=== PATIENT | male | born 1970 | race Caucasian/White ===

== ENCOUNTER 2017-11-25 19:58 | Emergency (ER) | payer SELFPAY ==
[2017-11-25] MEDS ORDERED: NORMAL SALINE 1000 ML 1,000 ML IV ONE ×2 (20:32→23:00)
--- NOTE | 2017-11-25 20:35 | ER Document Report ---
ED Medical Screen (RME) - General Chief Complaint: Weakness Stated Complaint: ALL OVER PAIN Time Seen by Provider: 11/25/17 20:28 Notes: 47-year-old male comes emergency department for weakness and dizziness, significant other at bedside states that patient nearly passed out and had to be caught, patient states he is very weak. He states for the past 2 months he has been unable to swallow or eat normally, he is now hoarse, and he is shedding weight. He smokes, denies any daily medications, denies any medical history otherwise. TRAVEL OUTSIDE OF THE [place] IN LAST 30 DAYS: No - Related Data Allergies/Adverse Reactions: No Known Allergies Allergy (Unverified 11/25/17 20:02) Physical Exam - HEENT Head: Normocephalic, Atraumatic Mucous membranes: Dry Pharynx: No: Erythema, Exudate, Uvular edema, Potential airway comprom. Neck: Other - Questionable firmness and swelling to the right side of the anterior neck, no tenderness noted Course - Re-evaluation Re-evalutation: Patient tachycardic, reportedly he almost passed out just recently, very dry mucous membranes, unable to eat/drink normally, concern for possible throat cancer based on his reported symptoms and exam. Maintaining airway at this time. Workup pending. I have greeted and performed a rapid initial assessment of this patient. A comprehensive ED assessment and evaluation of the patient, analysis of test results and completion of the medical decision making process will be conducted by additional ED providers. 11/25/17 20:35
--- NOTE | 2017-11-25 20:56 | RADIOLOGY REPORT (SQ) ---
EXAM DESCRIPTION: CHEST SINGLE VIEW COMPLETED DATE/TIME: 11/25/2017 8:48 pm REASON FOR STUDY: weakness, dizziness COMPARISON: None. EXAM PARAMETERS: NUMBER OF VIEWS: One view. TECHNIQUE: Single frontal radiographic view of the chest acquired. RADIATION DOSE: NA LIMITATIONS: None. FINDINGS: LUNGS AND PLEURA: Marked opacification in the left hemithorax, particularly in the left up per lobe. MEDIASTINUM AND HILAR STRUCTURES: No masses. Contour normal. HEART AND VASCULAR STRUCTURES: Heart normal in size. Normal vasculature. BONES: No acute findings. HARDWARE: None in the chest. OTHER: No other significant finding. IMPRESSION: There is a suggestion significant airspace disease on the left. This could represent at electasis or consolidation. TECHNICAL DOCUMENTATION: JOB ID: [id number] [employer]- All Rights Reserved Reading location - IP/workstation name: [email or web address]
[2017-11-25] MEDS ORDERED: METHYLPREDNISOLONE INJ 125 MG/2 ML SDV IV ONE (21:33)
[2017-11-25] MEDS ORDERED: IPRATROPIUM/ALBUTEROL 0.5-2.5 MG/3 ML AMPUL NEB ONE ×2 (21:33→21:34)
--- NOTE | 2017-11-25 21:34 | ER Document Report ---
ED General - General Information source: Patient TRAVEL OUTSIDE OF THE [place] IN LAST 30 DAYS: No <DELPHINE HORN - Last Filed: 11/25/17 23:54> <MARGO RUIZ - Last Filed: 11/27/17 04:10> - General Chief Complaint: Weakness Stated Complaint: ALL OVER PAIN Time Seen by Provider: 11/25/17 20:28 Notes: 47 y.o female presents to the ED with trouble breathing. Pt is not able to speak very well but relative at bedside reports that he has a mass in his throat that is causing him to have trouble with breathing and drinking. She reports that he has had this mass for the past 3 months and it is not being treated. Pt also sounds to have a productive cough hindering him from breathing. He states that he would like resuscitation if needed. (DELPHINE HORN) - Related Data Allergies/Adverse Reactions: No Known Allergies Allergy (Unverified 11/25/17 20:02) Past Medical History - General Information source: Patient - Social History Smoking Status: Current Every Day Smoker Frequency of alcohol use: None Family History: Reviewed & Not Pertinent Patient has suicidal ideation: No Patient has homicidal ideation: No Renal/ Medical History: Denies: Hx Peritoneal Dialysis <DELPHINE HORN - Last Filed: 11/25/17 23:54> Review of Systems - Review of Systems Constitutional: See HPI, Other - untreated mass to neck EENT: No symptoms reported Cardiovascular: No symptoms reported Respiratory: See HPI, Other - trouble breathing Gastrointestinal: No symptoms reported Genitourinary: No symptoms reported Male Genitourinary: No symptoms reported Musculoskeletal: No symptoms reported Skin: No symptoms reported Hematologic/Lymphatic: No symptoms reported Neurological/Psychological: No symptoms reported -: Yes All other systems reviewed and negative <DELPHINE HORN - Last Filed: 11/25/17 23:54> Physical Exam <DELPHINE HORN - Last Filed: 11/25/17 23:54> <MARGO RUIZ - Last Filed: 11/27/17 04:10> - Vital signs Vitals: Resp Pulse Ox 33 H 96 11/25/17 21:26 11/25/17 21:26 - Notes Notes: Physical Exam: General: Alert. Moderate distress. HEENT: Normocephalic. Atraumatic. PERRL. Extraocular movements intact. Oropharynx clear. Dry mucus membranes. Neck: Supple. Non-tender. Respiratory: Moderate distress. Tachypnic. Hypoxic. Has decreased breath sounds on the LT. Wheezing to the bilateral apices. Cardiovascular: Tachycardic rate and regular rhythm. Abdominal: Normal Inspection. Non-tender. No distension. Normal Bowel Sounds. Back: Non-tender. No deformity or step off. Extremities: Moves all four extremities. Upper extremities: Normal inspection. Normal ROM. Lower extremities: Normal inspection. No edema. Normal ROM. Neurological: Normal cognition. AAOx3. Normal speech. Psychological: Normal affect. Normal Mood. Skin: Warm. Dry. Normal color. (DELPHINE HORN) Course - Laboratory Result Diagrams: 11/25/17 21:38 11/25/17 21:38 <DELPHINE HORN - Last Filed: 11/25/17 23:54> - Laboratory Result Diagrams: 11/25/17 21:38 11/26/17 00:59 - Diagnostic Test Radiology reviewed: Image reviewed, Reports reviewed <MARGO RUIZ - Last Filed: 11/27/17 04:10> - Re-evaluation Re-evalutation: 11/25/17 23:29 Pt is starting to have respiratory failure. Discussed intubation and poor prognosis. Pt understands and does not have anyone that he wants to call at this moment. (DELPHINE HORN) Patient is a 47-year-old male who came in complaining of difficulty breathing. The patient has not seen a physician since he was a child. Immediate family members are apparently all including a brother last year related to diabetes. Patient's chest x-ray showing infection of left side of chest. Patient is decreased breath sounds, is tachypneic and tachycardic. He is placed on BiPAP. Discussed resuscitation including intubation and if the patient would like CPR. Patient states that he does not want to diet would like to be a full code after having a lengthy discussion regarding this. Patient CT showing a large mass in his left chest into his mediastinum and as well as liver metastasis. Blood work is showing a glucose of 400 with a CO2 of less than 5. Patient also has acute renal insufficiency and elevated liver enzymes. Patient had a difficult time with access initially likely due to shock. 2 peripheral IVs were placed and fluids were started as well as antibiotics but those eventually were inadequate and the lines blew. Patient began to have increased difficulty breathing and stated that he was getting very tired. Oxygen saturation was dropping despite being on BiPAP and patient GCS was waxing and waning. Patient did name his is healthcare proxy while he was still awake alert and oriented to time person place and events. Patient was prepared for intubation with glide scope. Please see procedure note. EJ was placed in the right neck prior to intubation. Central line then placed in left femoral for better access. Despite fluids, antibiotics and insulin drip, patient CO2 is only slightly improved. Glucose is finally trending down. Patient was discussed with the hospitalist service here and due to lack of ICU beds and critical care physician, recommend transfer to [place]. Discussed with Dr. Oliver in the ICU [place] who will accept the patient for transfer due to multisystem organ failure, intubation, newly diagnosed chest wall mass with liver metastases on CT. I have discussed at that length with the who is agreeable to transfer. Patient will go via air. Just prior to transfer, patient's blood pressure dropped and he was started on Levophed. Critical but stabilized condition at the time of transfer. (MARGO RUIZ) - Vital Signs Vital signs: Temp Pulse Resp BP Pulse Ox 100.6 F H 25 H 135/112 H 92 11/26/17 03:00 11/26/17 02:01 11/26/17 02:46 11/26/17 02:01 - Laboratory Laboratory results interpreted by me: 11/25/17 11/25/17 11/25/17 21:38 21:38 21:38 WBC 14.7 H MCHC 31.8 L RDW 17.8 H Band Neutrophils % 20 H Lymphocytes % (Manual) 11 L Monocytes % (Manual) 1 L Abs Neuts (Manual) 12.9 H PT VBG pH VBG pCO2 VBG HCO3 Sodium Potassium 5.5 H Chloride 92 L Carbon Dioxide 5 L* Anion Gap 41 H BUN 24 H Creatinine 1.29 H Est GFR (Non-Af Amer) Glucose 419 H* POC Glucose Lactic Acid 5.9 H Magnesium Total Bilirubin 5.5 H Direct Bilirubin 5.0 H AST 274 H ALT 260 H Alkaline Phosphatase 1500 H Creatine Kinase Urine Protein Urine Glucose (UA) Urine Ketones Urine Blood Urine Urobilinogen 11/25/17 11/26/17 11/26/17 21:38 00:23 00:34 WBC MCHC RDW Band Neutrophils % Lymphocytes % (Manual) Monocytes % (Manual) Abs Neuts (Manual) PT VBG pH 7.14 L* VBG pCO2 24.6 L VBG HCO3 8.2 L Sodium Potassium Chloride Carbon Dioxide Anion Gap BUN Creatinine Est GFR (Non-Af Amer) Glucose POC Glucose 405 H* Lactic Acid Magnesium Total Bilirubin Direct Bilirubin AST ALT Alkaline Phosphatase Creatine Kinase Urine Protein 100 H Urine Glucose (UA) >=500 H Urine Ketones 80 H Urine Blood MODERATE H Urine Urobilinogen 4.0 H 11/26/17 11/26/17 11/26/17 00:59 00:59 00:59 WBC MCHC RDW Band Neutrophils % Lymphocytes % (Manual) Monocytes % (Manual) Abs Neuts (Manual) PT 15.8 H VBG pH 6.99 L* VBG pCO2 VBG HCO3 9.2 L Sodium 136.5 L Potassium 5.5 H Chloride 97 L Carbon Dioxide 7 L* Anion Gap 33 H BUN 25 H Creatinine 1.42 H Est GFR (Non-Af Amer) 53 L Glucose 421 H* POC Glucose Lactic Acid Magnesium 2.7 H Total Bilirubin Direct Bilirubin AST ALT Alkaline Phosphatase Creatine Kinase 185 H Urine Protein Urine Glucose (UA) Urine Ketones Urine Blood Urine Urobilinogen 11/26/17 11/26/17 11/26/17 00:59 01:46 02:30 WBC MCHC RDW Band Neutrophils % Lymphocytes % (Manual) Monocytes % (Manual) Abs Neuts (Manual) PT VBG pH VBG pCO2 VBG HCO3 Sodium Potassium Chloride Carbon Dioxide Anion Gap BUN Creatinine Est GFR (Non-Af Amer) Glucose POC Glucose 412 H* 373 H Lactic Acid 5.3 H Magnesium Total Bilirubin Direct Bilirubin AST ALT Alkaline Phosphatase Creatine Kinase Urine Protein Urine Glucose (UA) Urine Ketones Urine Blood Urine Urobilinogen 11/26/17 02:55 WBC MCHC RDW Band Neutrophils % Lymphocytes % (Manual) Monocytes % (Manual) Abs Neuts (Manual) PT VBG pH VBG pCO2 VBG HCO3 Sodium Potassium Chloride Carbon Dioxide Anion Gap BUN Creatinine Est GFR (Non-Af Amer) Glucose POC Glucose 359 H Lactic Acid Magnesium Total Bilirubin Direct Bilirubin AST ALT Alkaline Phosphatase Creatine Kinase Urine Protein Urine Glucose (UA) Urine Ketones Urine Blood Urine Urobilinogen Procedures - Intubation Orotracheal Time of Intubation: 23:57 Medications: Etomidate Intubation method: Orotracheal <DELPHINE HORN - Last Filed: 11/25/17 23:54> - Central Line Left Femoral Time completed: 01:00 Consent obtained: No - emergent Central line pre-insertion: Sterile PPE donned, Chloraprep applied, Sterile drapes applied Central line lumen type: Triple Anesthetic type: 1% Lidocaine Ultrasound guided: Yes Line secured with sutures: Yes Central line post-insertion: Blood return from lumens, Biopatch applied, Sutured , Sterile dressing applied Complications: No - Intubation Orotracheal Airway evaluation: Normal anatomy, Copious secretions Mallampati Classification: Class 1 Blade size: 4 Equipment used: Glidescope ETT size: 7.5 ETT secured at: Teeth Breath Sounds after Intubation: Equal End tidal CO2 confirmed: Yes Post Intubation Xray: Yes Intubation Complications: No complications - Additional Procedures IV insertion Additional Procedures: IV insertion - R EJ <MARGO RUIZ - Last Filed: 11/27/17 04:10> Critical Care Note - Critical Care Note Total time excluding time spent on procedures (mins): 240 - Evaluation and management of respiratory distress, management of multisystem organ failure and shock, management of metabolic derangements, coordination of transfer, multiple re-evaluations, advanced care discussion with patient, family, counseling of patient and family <MARGO RUIZ - Last Filed: 11/27/17 04:10> Discharge <DELPHINE HORN - Last Filed: 11/25/17 23:54> <MARGO RUIZ - Last Filed: 11/27/17 04:10> - Discharge Clinical Impression: Multisystem organ failure, Septic shock Respiratory failure Qualifiers: Chronicity: acute Respiratory failure complication: unspecified whether with hypoxia or hypercapnia Qualified Code(s): J96.00 - Acute respiratory failure, unspecified whether with hypoxia or hypercapnia DKA (diabetic ketoacidoses) Qualifiers: Diabetes mellitus type: other specified (including MAKEAD) Diabetes mellitus complication detail: with coma Qualified Code(s): E13.11 - Other specified diabetes mellitus with ketoacidosis with coma Condition: Critical Disposition: [facility] Scribe Attestation: 11/27/17 04:09 I personally performed the services described in the documentation, reviewed and edited the documentation which was dictated to the scribe in my presence, and it accurately records my words and actions. (MARGO RUIZ) Scribe Documentation - Scribe Written by Deja:: Deja Monet 11/25/17 [id number] acting as scribe for :: Clark <DELPHINE HORN - Last Filed: 11/25/17 23:54>
[2017-11-25] MEDS ORDERED: LORAZEPAM INJ 2 MG/1 ML VIAL IV ONE (21:42)
[2017-11-25 21:54] LABS: VENOUS BLOOD BASE EXCESS -18.9 mmol/L; VENOUS BLOOD HCO3 8.2 mmol/L (20-32); VENOUS BLOOD PCO2 24.6 mmHg (35-63)
[2017-11-25 21:56] LABS: VENOUS BLOOD PH 7.14 (7.30-7.42)
[2017-11-25 22:01] LABS: HEMATOCRIT 50.7 % (37.9-51.0); HEMOGLOBIN 16.1 g/dL (13.5-17.0); MEAN CORPUSCULAR HEMOGLOBIN 30.2 pg (27.0-33.4); MEAN CORPUSCULAR HGB CONC 31.8 g/dL (32.0-36.0); MEAN CORPUSCULAR VOLUME 95 fl (80-97); PLATELET COUNT 373 10^3/uL (150-450); RED BLOOD COUNT 5.33 10^6/uL (4.35-5.55); RED CELL DISTRIBUTION WIDTH 17.8 % (11.5-14.0); WHITE BLOOD COUNT 14.7 10^3/uL (4.0-10.5)
[2017-11-25 22:18] LABS: ABSOLUTE LYMPHOCYTES# (MANUAL) 1.6 10^3/uL (0.5-4.7); ABSOLUTE MONOCYTES # (MANUAL) 0.1 10^3/uL (0.1-1.4); ABSOLUTE NEUTROPHILS# (MANUAL) 12.9 10^3/uL (1.7-8.2); BASOPHILS % (MANUAL) 0 % (0-2); EOSINOPHILS % (MANUAL) 0 % (0-6); LYMPHOCYTES % (MANUAL) 11 % (13-45); MONOCYTES % (MANUAL) 1 % (3-13); SEGMENTED NEUTROPHILS % (MAN) 68 % (42-78); TOTAL CELLS COUNTED 100
[2017-11-25 22:21] LABS: ANISOCYTOSIS 1+; PLATELET COMMENT ADEQUATE; POIKILOCYTOSIS SLIGHT; TARGET CELLS SLIGHT
[2017-11-25 22:23] LABS: BAND NEUTROPHILS % (MANUAL) 20 % (3-5)
[2017-11-25 22:34] LABS: ALANINE AMINOTRANSFERASE 260 U/L (21-72); ALBUMIN 3.8 g/dL (3.5-5.0); ALKALINE PHOSPHATASE 1500 U/L (38-126); ASPARTATE AMINO TRANSFERASE 274 U/L (17-59); BILIRUBIN,TOTAL 5.5 mg/dL (0.2-1.3); BLOOD UREA NITROGEN 24 mg/dL (7-20); CALCIUM 10.1 mg/dL (8.4-10.2); POTASSIUM 5.5 mmol/L (3.6-5.0); TOTAL PROTEIN 6.8 g/dL (6.3-8.2)
[2017-11-25 22:36] LABS: CHLORIDE 92 mmol/L (98-107)
[2017-11-25 22:39] LABS: ANION GAP 41 (5-19)
[2017-11-25 22:40] LABS: CARBON DIOXIDE 5 mmol/L (22-30); GLUCOSE 419 mg/dL (75-110)
[2017-11-25] MEDS ORDERED: CEFTRIAXONE 2 GM/D5W RTU 2 GM/50 ML RTUPB IV ONE (22:46)
--- NOTE | 2017-11-25 23:05 | RADIOLOGY REPORT (SQ) ---
EXAM DESCRIPTION: CTA CHEST COMPLETED DATE/TIME: 11/25/2017 10:40 pm REASON FOR STUDY: cough, sob, tachy COMPARISON: Chest x-ray 11/25/2017 TECHNIQUE: CT scan of the chest performed using helical scanning technique with dynamic intravenous contrast injection. Images reviewed with lung, soft tissue and bone windows. Reconstructed coronal and sagittal MPR images reviewed. Additional 3 dimensional post-processing performed to develop Maximal Intensity Projection images (KS P). All images stored on PACS. All CT scanners at this facility use dose modulation, iterative reconstruction, and/or weight based d osing when appropriate to reduce radiation dose to as low as reasonably achievable (ALARA). [facility]: Dose Right [facility]: CareDose [facility]: Dose Right [facility]: Teradose 4D [facility]: ApnaPaisa CONTRAST TYPE AND DOSE: contrast/concentration: Isovue 350.00 mg/ml; Total Contrast Delivered: 200.0 ml; Total Saline Delivered: 68.0 ml Contrast bolus adequate for pulmonary arteries and aorta. RENAL FUNCTION: Waived by the emergency room physician RADIATION DOSE: CT Rad equipment meets quality standard of care and radiation dose reduction techniq ues were employed. CTDIvol: 29.8 mGy. DLP: 2613 mGy-cm. . LIMITATIONS: None. FINDINGS: LUNGS AND PLEURA: Marked opacification of the left upper lobe. There is mild aeration of the apex. Left upper lobe mass is contiguous with the mediastinum. There is mild opacification in t he left lower lobe medially. Small left pleural effusion. Significant patchy opacification in the r ight lower lobe. AORTA AND GREAT VESSELS: No aneurysm. No dissection. HEART: No pericardial effusion. No significant coronary artery calcifications. PULMONARY ARTERIES: No emboli seen in the main pulmonary arteries or segmental branches. The left ma in pulmonary artery is encased and narrowed. HILAR AND MEDIASTINAL STRUCTURES: There is extensive mediastinal adenopathy/mass that involves the up per mediastinum and the left hilum. The mass/ adenopathy encases the left main pulmonary artery. HARDWARE: None in the chest. UPPER ABDOMEN: Multiple low-density lesions are seen in the liver. THYROID AND OTHER SOFT TISSUES: No masses. No adenopathy. BONES: Fracture of the sternum. See image 48 series 6 of 2. 3D MIPS: Confirm above findings. OTHER: No other significant finding. IMPRESSION: 1. There is a large mass/adenopathy involving the left hilum and the left mediastinum a nd upper mediastinum. This results in atelectasis in the left upper lobe. This encases the left obed n pulmonary artery. 2. There is no evidence of pulmonary embolus. 3. Extensive metastatic disease in the liver. 4. Possible sternal fracture. The appearance may be secondary to respiratory motion. COMMENT: Quality ID # [id number]: Final reports with documentation of one or more dose reduction techniques (e.g., Automated exposure control, adjustment of the mA and/or kV according to patient size, use of iterative reconstruction technique) TECHNICAL DOCUMENTATION: JOB ID: [id number] [employer]- All Rights Reserved Reading location - IP/workstation name: [email or web address]
[2017-11-25] MEDS ORDERED: ETOMIDATE INJ/PF 20 MG/10 ML SDV IV ONE (23:31)
[2017-11-25] MEDS ORDERED: PROPOFOL 1,000 MG/100 ML INFUS..BTL IV ONE (23:32)
[2017-11-26] MEDS ORDERED: VANCOMYCIN HCL INJ 1000 MG VIAL IV ONE (00:08)
--- NOTE | 2017-11-26 00:23 | RADIOLOGY REPORT (SQ) ---
EXAM DESCRIPTION: XR CHEST 1 VIEW COMPLETED DATE/TME: 11/25/2017 00:00 CLINICAL HISTORY: 47 years, Male, intubated COMPARISON: 11/25/2017 NUMBER OF VIEWS: One TECHNIQUE: AP view the chest LIMITATIONS: None. FINDINGS: The endotracheal tube terminates approximately 7 cm above the sabiha at the level of the clavicles. The nasogastric tube is in satisfactory position. There are airspace opacities within the left lung and right lung base. The heart is normal in size. There is no pneumothorax or pleural effusion. IMPRESSION: Satisfactory position of the endotracheal and nasogastric tubes. Airspace opacities within the left lung and right lung base, likely due to multifocal pneumonia. 2011 [employer]- All Rights Reserved
[2017-11-26] MEDS ORDERED: INSULIN REG, HUMAN 100 UNIT/ML 3 ML VIAL (PYX) IV ONE ×2 (00:44→01:47)
[2017-11-26] MEDS ORDERED: LEVOFLOXACIN 750 MG/D5W RTU 750 MG/150 ML RTUPB IV ONE (00:50)
[2017-11-26 00:53] LABS: APPEARANCE,URINE SLIGHTLY-CLOUDY; BILIRUBIN,URINE NEGATIVE (NEGATIVE); COLOR,URINE AMBER; GLUCOSE, URINE >=500 mg/dL (NEGATIVE); KETONES,URINE 80 mg/dL (NEGATIVE); LEUKOCYTE ESTERASE,URINE NEGATIVE (NEGATIVE); NITRITE,URINE NEGATIVE (NEGATIVE); PROTEIN,URINE 100 mg/dL (NEGATIVE); URINE SPECIFIC GRAVITY 1.035
[2017-11-26] MEDS ORDERED: DEXTROSE 40% GEL 15 GM TUBE PO PRN ×2 (01:05)
[2017-11-26] MEDS ORDERED: NORMAL SALINE 100 ML with INSULIN REGULAR, HUMAN 100 UNIT IV PRN ×2 (01:05)
[2017-11-26] MEDS ORDERED: DEXTROSE 50%-WATER 25 GM/50 ML DISP.SYRIN IV PRN ×2 (01:05)
[2017-11-26] MEDS ORDERED: GLUCAGON,HUMAN RECOMB 1 MG INJ IM PRN (01:05)
[2017-11-26 01:26] LABS: PROTHROMBIN TIME 15.8 SEC (11.4-15.4); VENOUS BLOOD BASE EXCESS -21.7 mmol/L; VENOUS BLOOD HCO3 9.2 mmol/L (20-32); VENOUS BLOOD PCO2 39.2 mmHg (35-63)
[2017-11-26 01:27] LABS: PARTIAL THROMBOPLASTIN TIME 28.9 SEC (23.5-35.8)
[2017-11-26] MEDS ORDERED: INSULIN REG, HUMAN 100 UNIT/ML 3 ML VIAL (PYX) ONE (01:28)
[2017-11-26 01:29] LABS: VENOUS BLOOD PH 6.99 (7.30-7.42)
[2017-11-26 01:39] LABS: BLOOD UREA NITROGEN 25 mg/dL (7-20); CALCIUM 8.7 mg/dL (8.4-10.2); CREATINE KINASE 185 U/L (55-170); POTASSIUM 5.5 mmol/L (3.6-5.0)
[2017-11-26] MEDS ORDERED: SODIUM BICARBONATE 8.4% INJ 50 MEQ/50 ML DISP.SYRIN ONE (01:43)
[2017-11-26] MEDS ORDERED: MAGNESIUM SULFATE/D5W 2 GM/200 ML RTUPB IV ONE (01:43)
[2017-11-26 01:45] LABS: CHLORIDE 97 mmol/L (98-107); SODIUM 136.5 mmol/L (137-145)
[2017-11-26 01:51] LABS: ANION GAP 33 (5-19)
[2017-11-26 01:54] LABS: CARBON DIOXIDE 7 mmol/L (22-30); GLUCOSE 421 mg/dL (75-110)
[2017-11-26] MEDS ORDERED: NORMAL SALINE 1000 ML 1,000 ML IV ONE (02:11)
[2017-11-26] MEDS: MAGNESIUM SULFATE/D5W 1 GM/100 ML RTUPB IV SCH ×2 (02:23→04:32)
[2017-11-26] MEDS ORDERED: PROPOFOL 1,000 MG/100 ML INFUS..BTL IV ONE (02:45)
[2017-11-26 04:17] VITALS: BP 135/112
--- NOTE | 2017-11-26 07:17 | EKG REPORT ---
SEVERITY:- ABNORMAL ECG - SINUS TACHYCARDIA SAMMY, CONSIDER BIATRIAL ABNORMALITIES NONSPECIFIC INTRAVENTRICULAR CONDUCTION DELAY LVH WITH SECONDARY REPOLARIZATION ABNORMALITY INFERIOR INFARCT, AGE INDETERMINATE, NO OLD EKG TO COMPARE.,CLINICAL CORRELATION LATERAL INFARCT, AGE INDETERMINATE : Confirmed by: Alvaro Atwood MD 26-Nov-2017 07:16:28
--- NOTE | 2017-11-26 07:54 | RADIOLOGY REPORT (SQ) ---
EXAM DESCRIPTION: CT SOFT TISSUE NECK WITH COMPLETED DATE/TIME: 11/25/2017 10:40 pm REASON FOR STUDY: trouble eating/swallowing; neck swelling; hoarse COMPARISON: CT angio chest 11/25/2017 TECHNIQUE: Post IV contrasted scanning from skull base through lung apices with review of bone, soft tissue and lung windows. Reconstructed coronal and sagittal MPR images reviewed. All images stored on PACS. All CT scanners at this facility use dose modulation, iterative reconstruction, and/or weight based d osing when appropriate to reduce radiation dose to as low as reasonably achievable (ALARA). [facility]: Dose Right [facility]: CareDose [facility]: Dose Right [facility]: Teradose 4D [facility]: [employer] CONTRAST TYPE AND DOSE: 100 mL of IV Omnipaque 350- low osmolar. RENAL FUNCTION: Deferred RADIATION DOSE: 30 mGy . LIMITATIONS: None. FINDINGS: SKULL BASE: Inferior brain parenchyma in the field of view is unremarkable. MAJOR SALIVARY GLANDS: No solid or cystic masses. No inflammatory changes. LYMPHADENOPATHY: Right carotid space lymph node 2.9 x 1.4 cm in size. At the level of the thoracic inlet, massive adenopathy is present, with markedly enlarged lymph nodes and tumor in the upper mediastinum. Left supraclavicular lymph node axial image 53, 4 x 3 cm in siz e. Right paratracheal lymph node at the thoracic and an 3.8 x 1.9 cm in size. Left paratracheal lym ph node at the thoracic inlet 3.8 x 2 cm in size. MUCOSAL MASSES OR ASYMMETRY: No mucosal masses or asymmetry. LARYNX/CORDS: Paralyzed left vocal cord VASCULAR STRUCTURES: The major vessels are patent. LUNG APICES: Dense postobstructive consolidation in the left upper lobe. BONES: Degenerative disc changes C6-7 THYROID: Normal size. No masses. PARANASAL SINUSES: Clear. OTHER: No other significant finding. IMPRESSION: Cervical adenopathy. Paralyzed left vocal cord. Postobstructive consolidation left upp er lobe TECHNICAL DOCUMENTATION: JOB ID: [id number] Quality ID # [id number]: Final reports with documentation of one or more dose reduction techniques (e.g., Au tomated exposure control, adjustment of the mA and/or kV according to patient size, use of iterative reconstruction technique) 2010 [employer]- All Rights Reserved Reading location - IP/workstation name: [email or web address]
[2017-11-26 13:13] LABS: PATH REVIEW PATHOLOGIST REVIEWED
[2017-11-26] MEDS ORDERED: ROCURONIUM BROMIDE INJ 50 MG/5 ML VIAL IV ONE (14:16)
--- NOTE | 2017-11-27 07:38 | EKG REPORT ---
SEVERITY:- ABNORMAL ECG - SINUS RHYTHM WITH FREQUENT PACS ,AND RUN OF VENTRICULAR PREMATURE COMPLEXES NONSPECIFIC INTRAVENTRICULAR CONDUCTION DELAY CONSIDER LEFT VENTRICULAR HYPERTROPHY INFERIOR INFARCT, AGE INDETERMINATE LATERAL LEADS ARE ALSO INVOLVED : Confirmed by: Alvaro Atwood MD 27-Nov-2017 07:38:20
== END 2017-11-26 03:28 | disposition short-term general hospital (02) ==
LOC: ER 19:58
DX: A41.9 Sepsis, unspecified organism (principal); R65.21 Severe sepsis with septic shock; J96.01 Acute respiratory failure with hypoxia; E13.11 Other specified diabetes mellitus with ketoacidosis with coma; R22.1 Localized swelling, mass and lump, neck; R22.2 Localized swelling, mass and lump, trunk; R74.8 Abnormal levels of other serum enzymes; N28.9 Disorder of kidney and ureter, unspecified
CPT/HCPCS: 93005 ×2; 94640; 99291; 99292; 96361; 96375; 96365; 96366; 96367; 36415; 87040; 82962; 82550; 83735; 85025; 85610; 85730; 87077; 80048; 80053; 81001; 84484; 87186; 82803; 83605; 71045; 70491; 71275; 94660 ×2; 93010; 31500; 36556; C1751; J3490 ×3; J2704; J2930; J2060; J3475; J1815; J7030 ×2; J1956; J7620; J0696